=== PATIENT | female | born 1950 | race African-American/Black ===

== ENCOUNTER 2019-03-21 14:47 | Inpatient (IN) | payer OTHER ==
[~2019-03-21] VITALS: Ht 165.1 cm; Wt 45.8 kg
[2019-03-21] MEDS ORDERED: METHYLPREDNISOLONE SOD SUCC 125 MG/2 ML VIAL IV STA (16:11)
[2019-03-21] MEDS ORDERED: IPRATROPIUM/ALBUTEROL 0.5-3(2.5)MG/3ML NEB HHN ONE (16:15)
[2019-03-21] MEDS ORDERED: LEVOFLOXACIN 500MG PREMIX 100 ML IV ONE (16:15)
[2019-03-21 16:48] LABS: BG BASE EXCESS 1.5 mmol/L (-2.0-2.0); BG CARBOXYHEMOGLOBIN 0.3 % (0.5-1.5); BG DEOXYHEMOGLOBIN 1.5 % (0.0-5.0); BG FRACTION INSPIRED OXYGEN 100; BG HCO3 ACT 25.1 mmol/L (22.0-26.0); BG METHEMOGLOBIN 0.1 % (0.0-1.5); BG OXYGEN SATURATION 98.5 % (92.0-98.5); BG OXYHEMOGLOBIN 98.1 % (94.0-97.0); BG PCO2 36.1 mmHg (35.0-45.0); BG SAMPLE SITE RIGHT RADIAL; BG TOTAL HEMOGLOBIN 12.4 g/dL (12.0-18.0); BG VENT MODE MASK - NRB
[2019-03-21 16:57] LABS: BASOPHILS % 0.3 % (0.0-2.0); EOSINOPHILS % 0.1 % (0.0-5.0); HEMATOCRIT. 38.1 % (36.0-48.0); HEMOGLOBIN. 12.9 g/dL (12.0-16.0); LYMPHOCYTES % 12.5 % (20.0-50.0); MEAN CORPUSCULAR VOLUME 94.3 fL (81.0-99.0); MEAN PLATELET VOLUME 9.1 fl (7.4-10.4); MONOCYTES % 6.6 % (2.0-8.0); NEUTROPHILS % 80.5 % (40.0-76.0); PLATELET 406 x1000/uL (130-400); RED BLOOD CELL COUNT 4.04 mill/uL (4.2-5.4)
[2019-03-21 17:07] LABS: CHLORIDE 101 mEq/L (98-107)
[2019-03-21 17:10] LABS: ETHANOL BLOOD < 10 mg/dL
[2019-03-21] MEDS ORDERED: POTASSIUM CHLORIDE 20MEQ TABLET SR PO ONE (17:30)
[2019-03-21 21:15] VITALS: BP 149/96
[2019-03-21 22:17] VITALS: BP 149/96
[2019-03-21] MEDS ORDERED: DEXT 5%/0.45% NACL 500ML 1,000 ML IV SCH (22:45)
[2019-03-21] MEDS ORDERED: ACETAMINOPHEN 325MG TABLET PO PRN (22:45)
[2019-03-22] VITALS (19 sets, daily range): BP systolic 102–139; BP diastolic 67–101
[2019-03-22] MEDS ORDERED: CEFTRIAXONE 1 G PREMIX 50 ML IV SCH
[2019-03-22] MEDS: DEXT 5%/0.45% NACL 1000ML 1,000 ML IV SCH ×4 (00:21→19:45)
[2019-03-22] MEDS: METHYLPREDNISOLONE SOD SUCC 40 MG/ML VIAL IV SCH ×4 (00:21→22:29)
[2019-03-22] MEDS: TEMAZEPAM 15MG CAPSULE PO PRN ×2 (00:21→22:42)
[2019-03-22] MEDS: IPRATROPIUM/ALBUTEROL 0.5-3(2.5)MG/3ML NEB HHN SCH ×6 (01:06→20:18)
[2019-03-22] MEDS ORDERED: PANTOPRAZOLE 40MG DR TABLET PO SCH (07:20)
[2019-03-22] MEDS ORDERED: ENOXAPARIN 40MG/0.4ML SYR SUBCUT SCH (09:00)
[2019-03-22 11:22] LABS: HEMATOCRIT. 33.5 % (36.0-48.0); HEMOGLOBIN. 11.3 g/dL (12.0-16.0); MEAN CORPUSCULAR HEMOGLOBIN 31.3 pg (28.0-32.0); MEAN CORPUSCULAR VOLUME 92.9 fL (81.0-99.0); MEAN PLATELET VOLUME 8.7 fl (7.4-10.4); PLATELET 372 x1000/uL (130-400); RED BLOOD CELL COUNT 3.61 mill/uL (4.2-5.4); RED CELL DISTRIBUTION WIDTH 13.1 % (11.6-14.6)
[2019-03-22 11:32] LABS: CHLORIDE 103 mEq/L (98-107)
[2019-03-22 11:41] LABS: LDL CHOLESTEROL 92 mg/dL (5-100)
[2019-03-22 11:44] LABS: T4 FREE 1.46 ng/dL (0.76-1.46)
[2019-03-22 11:45] LABS: HDL CHOLESTEROL 49 mg/dL (40-59)
[2019-03-22 12:41] LABS: D-DIMER 1.4 mg/L FEU (<0.50); PROTHROMBIN TIME 10.7 sec (9.6-11.0)
[2019-03-22] MEDS ORDERED: MORPHINE SULFATE 2 MG/ML CPJ (NOT FOR IM USE) IV PRN (13:15)
[2019-03-22 14:50] LABS: BG BASE EXCESS -0.6 mmol/L (-2.0-2.0); BG CARBOXYHEMOGLOBIN 0.3 % (0.5-1.5); BG DEOXYHEMOGLOBIN 0.5 % (0.0-5.0); BG HCO3 ACT 24.8 mmol/L (22.0-26.0); BG METHEMOGLOBIN 0.3 % (0.0-1.5); BG OXYGEN SATURATION 99.5 % (92.0-98.5); BG OXYHEMOGLOBIN 98.9 % (94.0-97.0); BG PCO2 43.9 mmHg (35.0-45.0); BG PO2 313.6 mmHg (75.0-100.0); BG SAMPLE SITE RIGHT BRACHIAL; BG TOTAL HEMOGLOBIN 12.4 g/dL (12.0-18.0); BG VENT MODE MASK - NRB
[2019-03-22] MEDS: PIPERACILLIN/TAZOBACTAM 3.375 G in DEXT 5% WATER 100 ML IV SCH ×2 (16:20→22:37)
[2019-03-22] MEDS ORDERED: DEXTROSE 50% WATER 50ML SYRINGE IV PRN (17:00)
[2019-03-22] MEDS ORDERED: LACTULOSE 20G/30ML UDC PO PRN (17:00)
[2019-03-22] MEDS ORDERED: DIPHENHYDRAMINE 50MG/ML VIAL IV PRN (17:00)
[2019-03-22] MEDS: INSULIN LISPRO 100 UNITS/ML SUBCUT SCH ×2 (17:05→21:00)
[2019-03-22] MEDS: BLOOD SUGAR DIAGNOSTIC STRIP TEST SCH ×2 (17:05→21:17)
[2019-03-22] MEDS ORDERED: IOHEXOL-350 100 ML BOTTLE ONE (17:18)
[2019-03-22 18:10] LABS: PLATELET ESTIMATE NORMAL
[2019-03-23] VITALS (20 sets, daily range): BP systolic 95–142; BP diastolic 52–89
[2019-03-23] MEDS: IPRATROPIUM/ALBUTEROL 0.5-3(2.5)MG/3ML NEB HHN SCH ×5 (00:04→20:54)
[2019-03-23] MEDS: DEXT 5%/0.45% NACL 1000ML 1,000 ML IV SCH ×2 (05:24→14:07)
[2019-03-23] MEDS: PIPERACILLIN/TAZOBACTAM 3.375 G in DEXT 5% WATER 100 ML IV SCH ×4 (05:24→22:48)
[2019-03-23] MEDS: METHYLPREDNISOLONE SOD SUCC 40 MG/ML VIAL IV SCH ×2 (05:29→14:07)
[2019-03-23 06:39] LABS: HEMATOCRIT. 32.1 % (36.0-48.0); HEMOGLOBIN. 10.6 g/dL (12.0-16.0); MEAN CORPUSCULAR HEMOGLOBIN 31.2 pg (28.0-32.0); MEAN CORPUSCULAR VOLUME 94.8 fL (81.0-99.0); MEAN PLATELET VOLUME 8.6 fl (7.4-10.4); PLATELET 392 x1000/uL (130-400); RED BLOOD CELL COUNT 3.39 mill/uL (4.2-5.4); RED CELL DISTRIBUTION WIDTH 13.3 % (11.6-14.6)
[2019-03-23 06:40] LABS: CHLORIDE 106 mEq/L (98-107)
[2019-03-23 07:07] LABS: CLARITY URINE CLEAR (CLEAR); COLOR URINE YELLOW (YELLOW); KETONES URINE NEGATIVE (NEGATIVE); LEUKOCYTE ESTERASE URINE NEGATIVE (NEGATIVE); NITRITE URINE NEGATIVE (NEGATIVE); OCCULT BLOOD URINE NEGATIVE (NEGATIVE); PROTEIN URINE NEGATIVE (NEGATIVE); SPECIFIC GRAVITY URINE 1.018 (1.005-1.030); UROBILINOGEN URINE 0.2 E.U./dL (0.2-1.0)
[2019-03-23] MEDS: BLOOD SUGAR DIAGNOSTIC STRIP TEST SCH ×4 (07:53→21:00)
[2019-03-23] MEDS: ENOXAPARIN 30MG/0.3ML SYR SUBCUT SCH (09:03)
[2019-03-23 09:16] LABS: PLATELET ESTIMATE NORMAL
[2019-03-23] MEDS: INSULIN LISPRO 100 UNITS/ML SUBCUT SCH ×4 (09:31→21:00)
[2019-03-23] MEDS: TEMAZEPAM 15MG CAPSULE PO PRN (22:46)
[2019-03-24] VITALS (11 sets, daily range): BP systolic 96–128; BP diastolic 65–85
[2019-03-24] MEDS: METHYLPREDNISOLONE SOD SUCC 40 MG/ML VIAL IV SCH ×2 (00:13→14:58)
[2019-03-24] MEDS: IPRATROPIUM/ALBUTEROL 0.5-3(2.5)MG/3ML NEB HHN SCH ×6 (00:54→19:53)
[2019-03-24] MEDS: PIPERACILLIN/TAZOBACTAM 3.375 G in DEXT 5% WATER 100 ML IV SCH ×3 (05:59→16:58)
[2019-03-24] MEDS: BLOOD SUGAR DIAGNOSTIC STRIP TEST SCH ×4 (06:57→20:28)
[2019-03-24] MEDS: ENOXAPARIN 30MG/0.3ML SYR SUBCUT SCH (08:38)
[2019-03-24] MEDS: INSULIN LISPRO 100 UNITS/ML SUBCUT SCH ×4 (08:40→20:29)
[2019-03-24] MEDS: DEXT 5%/0.45% NACL 1000ML 1,000 ML IV SCH (09:02)
[2019-03-24 11:56] LABS: HEMATOCRIT. 32.5 % (36.0-48.0); HEMOGLOBIN. 10.7 g/dL (12.0-16.0); MEAN CORPUSCULAR HEMOGLOBIN 31.2 pg (28.0-32.0); MEAN CORPUSCULAR VOLUME 95.2 fL (81.0-99.0); MEAN PLATELET VOLUME 8.3 fl (7.4-10.4); PLATELET 333 x1000/uL (130-400); RED BLOOD CELL COUNT 3.42 mill/uL (4.2-5.4); RED CELL DISTRIBUTION WIDTH 13.3 % (11.6-14.6)
[2019-03-24 12:02] LABS: CHLORIDE 107 mEq/L (98-107)
[2019-03-24 12:16] LABS: PLATELET ESTIMATE NORMAL
[2019-03-24] MEDS ORDERED: TRAMADOL 50MG TABLET PO SCH (15:00)
== END 2019-03-24 21:31 | disposition short-term general hospital (02) | DRG 291 ==
LOC: ER 14:47 → 6WST 19:11 → EDBEDREQTM 19:24 → EDBEDREQ 19:24 → ENRESERV 20:20 → CVICU 03-22 14:30 → 3WST 03-23 15:50
PROVIDERS: ADMIT Internal Medicine; ATTEND Internal Medicine
DX: I11.0 Hypertensive heart disease with heart failure (principal); J18.9 Pneumonia, unspecified organism; J44.1 Chronic obstructive pulmonary disease with (acute) exacerbation; G93.40 Encephalopathy, unspecified; E87.2 Acidosis; J44.0 Chronic obstructive pulmonary disease with (acute) lower respiratory infection; I50.43 Acute on chronic combined systolic (congestive) and diastolic (congestive) heart failure; R73.9 Hyperglycemia, unspecified; D64.9 Anemia, unspecified; E87.5 Hyperkalemia; I34.0 Nonrheumatic mitral (valve) insufficiency; T38.0X5A Adverse effect of glucocorticoids and synthetic analogues, initial encounter; Z91.19 Patient's noncompliance with other medical treatment and regimen; Y92.89 Other specified places as the place of occurrence of the external cause; Z87.891 Personal history of nicotine dependence
CPT/HCPCS: 36415; 36600; 71045; 71275; 76700; 80048; 80061; 80320; 81003; 82375; 82805; 82962; 83036; 83605; 83735; 83880; 84439; 84443; 84484; 85379; 92610; 93005; 93306; 93970; 94640; 96365; 96375; 97162; 99285; J0696; J1650; J1815; J1956; J2543; J2920; J2930; J7060; J7620; Q9967; G0480